=== PATIENT | male | born 1955 | race Caucasian/White ===

== ENCOUNTER 2016-12-11 11:19 | Emergency (ER) | payer MEDICAID ==
[2016-12-11] MEDS ORDERED: Ketorolac 10 MG Tab PO ONE (11:20)
[2016-12-11 11:40] VITALS: BP 126/60
--- NOTE | 2016-12-11 12:03 | EDM.PDOC ---
ED HPI GENERAL MEDICAL PROBLEM - General Chief Complaint: Upper Extremity Injury/Pain Stated Complaint: "I fell and hurt my wrist." Time Seen by Provider: 12/11/16 11:55 Source of Information: Reports: Patient History Limitations: Reports: No Limitations - History of Present Illness INITIAL COMMENTS - FREE TEXT/NARRATIVE: Fell this am tried to catch myself and injured my right wrist area. Pain is worse with movement in the distal wrist region. Relieved by rest, currently on Mobic 15 mg daily. Ice and elevated. Onset: Today Onset Date: 12/11/16 Onset Time: 10:00 Duration: Improving Location: Reports: Face, Upper Extremity, Right Quality: Reports: Throbbing Severity: Mild Improves with: Reports: Rest Worsens with: Reports: Movement Context: Reports: Trauma Associated Symptoms: Reports: Other (Facial abrasion-nasal abrasion) Right Wrist Pain Score (Numeric/FACES): 8 - Related Data Allergies Allergy/AdvReac Type Severity Reaction Status Date / Time Penicillins Allergy Cannot Verified 12/11/16 11:41 Remember Home Meds: Home Meds Albuterol Sulfate [Proair Respiclick] 2 puff INH Q4H PRN 09/16/14 [History] Albuterol [Proventil Neb Soln] 1 vial NEB Q6H PRN 09/16/14 [History] Aspirin [Ecotrin] 81 mg PO DAILY 09/16/14 [History] Divalproex Sodium 1,500 mg PO QPM 09/16/14 [History] Divalproex Sodium [Depakote] 500 mg PO QAM 09/16/14 [History] Docusate Sodium [Doc-Q-Lace] 100 mg PO DAILY 09/16/14 [History] Fluticasone/Salmeterol [Advair 500-50] 1 puff INH BID 09/16/14 [History] Hydrocodone/Acetaminophen [Hydrocodon-Acetaminophen 5-325] 0.5 - 1 tab PO Q12H 09/16/14 [History] Lisinopril 20 mg PO DAILY 09/16/14 [History] Meloxicam 15 mg PO BEDTIME PRN 09/16/14 [History] Mirtazapine 15 - 30 mg PO BEDTIME PRN 09/16/14 [History] Montelukast Sodium [Singulair] 10 mg PO DAILY 09/16/14 [History] Phenytoin 300 mg PO QAM 09/16/14 [History] Phenytoin 400 mg PO BEDTIME 09/16/14 [History] Simvastatin [Zocor] 40 mg PO BEDTIME 09/16/14 [History] Tiotropium [Spiriva HandiHaler] 18 mcg INH DAILY 09/16/14 [History] amLODIPine [Norvasc] 5 mg PO DAILY 09/16/14 [History] diphenhydrAMINE [Benadryl] 100 mg PO BEDTIME 09/16/14 [History] metFORMIN HCl [Metformin HCl] 1,000 mg PO BID 09/16/14 [History] risperiDONE [Risperdal] 4 mg PO BEDTIME 09/16/14 [History] Azithromycin 250 mg PO DAILY #6 tablet 09/18/14 [Rx] Furosemide [Lasix] 60 mg PO DAILY #0 09/18/14 [Rx] Past Medical History Cardiovascular History: Reports: High Cholesterol, Hypertension, SOB on Exertion Respiratory History: Reports: COPD Other Respiratory History: home oxygen Other Genitourinary History: urinary frequency Musculoskeletal History: Reports: Fracture, Other (See Below) Other Musculoskeletal History: chronic foot pain R Neurological History: Reports: Parkinson's, Seizure Endocrine/Metabolic History: Reports: Diabetes, Type I, Obesity/BMI 30+ Social & Family History - Tobacco Use Smoking Status *Q: Never Smoker Years of Tobacco use: 6 Used Tobacco, but Quit: Yes Month Tobacco Last Used: 32 yrs ago Second Hand Smoke Exposure: No - Recreational Drug Use Recreational Drug Use: No - Living Situation & Occupation Living situation: Reports: Single Occupation: Disabled Review of Systems - Review of Systems Review Of Systems: See Below Constitutional: Reports: No Symptoms Eyes: Reports: No Symptoms Ears: Reports: No Symptoms Nose: Reports: Other (mild abrasion across nasal bridge) Mouth/Throat: Reports: No Symptoms Respiratory: Reports: No Symptoms Cardiovascular: Reports: No Symptoms GI/Abdominal: Reports: No Symptoms Genitourinary: Reports: No Symptoms Musculoskeletal: Reports: Arm Pain (Right wrist region) Skin: Reports: Other (Abrasion on nasal region) Neurological: Reports: Pre-Existing Deficit (Parkinsons with tremor noted- Tripped with new shoes) Psychiatric: Reports: No Symptoms ED EXAM, GENERAL - Physical Exam Exam: See Below Exam Limited By: No Limitations General Appearance: Alert, WD/WN, Mild Distress Eye Exam: Bilateral Eye: EOMI, PERRL Ears: Normal External Exam Ear Exam: Bilateral Ear: Auricle Normal, Canal Normal, TM normal Nose: Nasal Tenderness (Mild abrasion). No: Normal Mucosa, No Blood Throat/Mouth: Normal Inspection, Normal Lips, Normal Teeth, Normal Gums, Normal Oropharynx, Normal Voice, No Airway Compromise Head: Atraumatic, Normocephalic. No: Facial Swelling, Facial Tenderness Neck: Normal Inspection, Supple, Non-Tender, Full Range of Motion Respiratory/Chest: No Respiratory Distress, Lungs Clear, Normal Breath Sounds, No Accessory Muscle Use, Chest Non-Tender Cardiovascular: Normal Peripheral Pulses, Regular Rate, Rhythm Peripheral Pulses: 3+: Radial (L), Radial (R) GI/Abdominal: Soft, Non-Tender (Male) Exam: Deferred Rectal (Males) Exam: Deferred Back Exam: Normal Inspection. No: Muscle Spasm, Paraspinal Tenderness Extremities: Normal Inspection, Normal Capillary Refill, Arm Pain, Limited Range of Motion. No: Slow Capillary Refill, Joint Swelling Neurological: Alert, Oriented, CN II-XII Intact, Normal Cognition, Normal Gait, Normal Reflexes, No Motor/Sensory Deficits Psychiatric: Normal Affect, Normal Mood Skin Exam: Warm, Dry, Intact, Ecchymosis Lymphatic: No Adenopathy Course - Vital Signs Last Recorded V/S: Last Vital Signs Temp 36.8 C 12/11/16 11:37 Pulse 81 12/11/16 11:37 Resp 20 12/11/16 11:37 BP 126/60 12/11/16 11:37 Pulse Ox 95 12/11/16 11:37 - Orders/Labs/Meds Orders: Active Orders 24 hr Category Date Time Status Wrist Comp Min 3V Rt [CR] Stat Exams 12/11/16 11:23 Taken Departure - Departure Time of Disposition: 12:11 Disposition: Home, Self-Care 01 Condition: Good Clinical Impression: Wrist pain, acute - Discharge Information Instructions: Pain Medicine Instructions, [id number], Cast or Splint Care, [id number] Additional Instructions: Xray-pending Radiological review. No acute dislocation or fracture noted. Thumb spica splint application. Rest Ice Splint Elevate and medications as indicated Prevent further injury and call for appointment with Dr. Ramsey Monday for reevaluation. - Problem List & Annotations (1) Wrist pain, acute SNOMED Code(s): 15475620, 112158976 Code(s): M25.539 - PAIN IN UNSPECIFIED WRIST Status: Acute - Problem List Review Problem List Initiated/Reviewed/Updated: Yes - My Orders Last 24 Hours: My Active Orders 12/11/16 11:23 Wrist Comp Min 3V Rt [CR] Stat - Assessment/Plan Last 24 Hours: My Active Orders 12/11/16 11:23 Wrist Comp Min 3V Rt [CR] Stat Assessment:: Right Wrist Strain S/P fall Parkinson's COPD Plan: Xray-pending Radiological review. No acute dislocation or fracture noted. Thumb spica splint application. Rest Ice Splint Elevate and medications as indicated Prevent further injury and call for appointment with Dr. Ramsey Monday for reevaluation.
[2016-12-11] MEDS ORDERED: Take Home: Ketorolac 10 MG Tab, 4 Tab Pack PO ONE (12:04)
== END 2016-12-11 12:25 | disposition home or self-care (01) ==
LOC: CC.ED 11:19
DX: S66.911A Strain of unspecified muscle, fascia and tendon at wrist and hand level, right hand, initial encounter (principal); E10.9 Type 1 diabetes mellitus without complications; G20 Parkinson's disease; E66.9 Obesity, unspecified; E78.00 Pure hypercholesterolemia, unspecified; I10 Essential (primary) hypertension; J44.9 Chronic obstructive pulmonary disease, unspecified; Z88.0 Allergy status to penicillin; Z79.899 Other long term (current) drug therapy; Z79.82 Long term (current) use of aspirin; Z79.84 Long term (current) use of oral hypoglycemic drugs; W18.30XA Fall on same level, unspecified, initial encounter
CPT/HCPCS: 73110; 99283; A9270

== ENCOUNTER 2020-05-29 10:10 | Emergency (ER) | payer MEDICAID ==
[2020-05-29 10:30] VITALS: BP 148/69; PULSE 95
--- NOTE | 2020-05-29 11:00 | EDM.PDOC ---
ED HPI GENERAL MEDICAL PROBLEM - General Chief Complaint: General Stated Complaint: abd pain Time Seen by Provider: 05/29/20 10:40 Source of Information: Reports: Patient History Limitations: Reports: No Limitations - History of Present Illness INITIAL COMMENTS - FREE TEXT/NARRATIVE: GLADYS is a 65 yo male who presents to the ED with c/o mid abdominal pain. He reports pain started about 430 this morning and has been constant and intensified since then. He describes the pain as a sharp ache. Pain is worse with movement. He reports he tried some Pepto Bismol this morning and that made him vomit. He reports he is nauseated and chilled. He denies any fever, dizziness, headache, chest pain, increased SOB from baseline. Does also report he has only been "dribbling" urine. Reports it is painful when he dribbles urine. Does have COPD and is on chronic home O2 at 2-3 L. O2 low upon presentation but he now currently has O2 sats 95% on 3 L. Onset: Today, Sudden Onset Date: 05/29/20 Onset Time: 04:30 Duration: Constant Location: Reports: Abdomen Quality: Reports: Ache Severity: Severe Improves with: Reports: None Worsens with: Reports: Movement Associated Symptoms: Reports: Fever/Chills (chills, no fever), Loss of Appetite, Nausea/Vomiting, Shortness of Breath (baselne). Denies: Confusion, Chest Pain, Cough, cough w sputum, Diaphoresis, Headaches, Malaise, Rash, Seizure, Syncope, Weakness Upper Mid-Anterior Epigastric Pain Score (Numeric/FACES): 10 - Related Data Allergies Allergy/AdvReac Type Severity Reaction Status Date / Time Penicillins Allergy Cannot Verified 05/29/20 13:00 Remember Home Meds: Home Meds Albuterol Sulfate [Proair Respiclick] 2 puff INH Q4H PRN 09/16/14 [History] Albuterol [Proventil Neb Soln] 1 vial NEB Q6H PRN 09/16/14 [History] Aspirin [Ecotrin EC] 81 mg PO DAILY 09/16/14 [History] Divalproex Sodium 1,500 mg PO QPM 09/16/14 [History] Divalproex Sodium [Depakote] 500 mg PO QAM 09/16/14 [History] Fluticasone/Salmeterol [Advair 500-50] 1 puff INH BID 09/16/14 [History] Lisinopril 20 mg PO DAILY 09/16/14 [History] Meloxicam 15 mg PO BEDTIME PRN 09/16/14 [History] Mirtazapine 15 - 30 mg PO BEDTIME PRN 09/16/14 [History] Montelukast Sodium [Singulair] 10 mg PO DAILY 09/16/14 [History] Phenytoin 300 mg PO QAM 09/16/14 [History] Phenytoin 400 mg PO BEDTIME 09/16/14 [History] Simvastatin [Zocor] 40 mg PO BEDTIME 09/16/14 [History] Tiotropium [Spiriva HandiHaler] 18 mcg INH DAILY 09/16/14 [History] amLODIPine [Norvasc] 5 mg PO DAILY 09/16/14 [History] diphenhydrAMINE [Benadryl] 100 mg PO BEDTIME 09/16/14 [History] metFORMIN HCl [Metformin HCl] 1,000 mg PO BID 09/16/14 [History] risperiDONE [Risperdal] 4 mg PO BEDTIME 09/16/14 [History] Furosemide [Lasix] 60 mg PO DAILY #0 09/18/14 [Rx] Past Medical History Cardiovascular History: Reports: High Cholesterol, Hypertension, SOB on Exertion Respiratory History: Reports: COPD Other Respiratory History: home oxygen Genitourinary History: Reports: Other (See Below) Other Genitourinary History: urinary frequency Musculoskeletal History: Reports: Fracture, Other (See Below) Other Musculoskeletal History: chronic foot pain R Neurological History: Reports: Parkinson's, Seizure Endocrine/Metabolic History: Reports: Diabetes, Type II, Obesity/BMI 30+ Social & Family History - Family History Family Medical History: No Pertinent Family History - Alcohol Use Alcohol Use History: No - Recreational Drug Use Recreational Drug Use: No - Living Situation & Occupation Living situation: Reports: Single Occupation: Disabled ED ROS GENERAL - Review of Systems Review Of Systems: See Below Constitutional: Reports: Chills, Weakness, Decreased Appetite. Denies: Fever HEENT: Reports: No Symptoms Respiratory: Reports: Shortness of Breath. Denies: Pleuritic Chest Pain, Cough, Sputum Cardiovascular: Reports: Dyspnea on Exertion, Edema. Denies: Chest Pain Endocrine: Reports: No Symptoms GI/Abdominal: Reports: Abdominal Pain, Decreased Appetite, Nausea, Vomiting. Denies: Black Stool, Bloody Stool, Constipation, Diarrhea, Hematemesis : Reports: Dysuria, Other (dribbling) Musculoskeletal: Reports: No Symptoms Skin: Reports: No Symptoms Neurological: Reports: Weakness. Denies: Confusion, Dizziness, Numbness, Tingling Psychiatric: Reports: No Symptoms Hematologic/Lymphatic: Reports: No Symptoms Immunologic: Reports: No Symptoms ED EXAM, GENERAL - Physical Exam Exam: See Below Exam Limited By: No Limitations General Appearance: Alert, WD/WN, Mild Distress Nose: Normal Inspection, Normal Mucosa, No Blood Throat/Mouth: Normal Inspection, Normal Lips, Normal Teeth, Normal Gums, Normal Oropharynx, Normal Voice, No Airway Compromise Neck: Normal Inspection, Supple, Non-Tender, Full Range of Motion Respiratory/Chest: No Respiratory Distress, No Accessory Muscle Use, Decreased Breath Sounds, Wheezing Cardiovascular: Regular Rate, Rhythm GI/Abdominal: Normal Bowel Sounds, Soft, Guarding, Tender Back Exam: Normal Inspection, Full Range of Motion. No: CVA Tenderness (L), CVA Tenderness (R) Neurological: Alert, Oriented, CN II-XII Intact, Normal Cognition, Normal Gait, Normal Reflexes, No Motor/Sensory Deficits Psychiatric: Normal Affect, Normal Mood Skin Exam: Dry Course - Vital Signs Last Recorded V/S: Last Vital Signs Temp 95.8 F L 05/29/20 10:13 Pulse 95 05/29/20 10:13 Resp 21 H 05/29/20 10:13 BP 148/69 H 05/29/20 10:13 Pulse Ox - Orders/Labs/Meds Orders: Active Orders 24 hr Category Date Time Status Abdomen Ltd [US] Stat Exams 05/29/20 11:01 Taken Chest 2V [CR] Stat Exams 05/29/20 10:23 Taken UA RFX EDUARDO AND CULT IF INDIC [URIN] Stat Lab 05/29/20 10:53 Ordered Labs: Laboratory Tests 05/29/20 05/29/20 05/29/20 Range/Units 10:30 10:36 10:36 WBC 11.6 H (5.0-10.0) 10^3/uL RBC 3.77 L (4.50-6.00) 10^6/uL Hgb 11.5 L (14.0-18.0) g/dL Hct 35.8 L (40.0-54.0) % MCV 95.0 H (82.0-94.0) fL MCH 30.5 (27.0-32.0) pg MCHC 32.1 L (33.0-38.0) g/dL RDW Coeff of Zhang 14.1 (11.0-15.0) % Plt Count 390 (150-400) 10^3/uL Add Manual Diff Yes Neutrophils % (Manual) 81 (35-85) % Lymphocytes % (Manual) 7 L (21-55) % Monocytes % (Manual) 11 (2-12) % Eosinophils % (Manual) 1 (0-5) % PT 10.3 (9.7-12.3) SEC INR 0.94 (0.92-1.18) APTT 25.2 (23.2-32.3) SEC D-Dimer, Quantitative 5.14 H (0.00-0.50) Sodium (136-145) mEq/L Potassium (3.5-5.0) mEq/L Chloride (98-106) mEq/L Carbon Dioxide (21-32) mmol/L BUN (7-18) mg/dL Creatinine (0.7-1.3) mg/dL Est Cr Clr Drug Dosing mL/min Estimated GFR (MDRD) (>=60) mL/min Glucose (75-99) mg/dL Calcium (8.4-10.1) mg/dL Total Bilirubin (0.0-1.0) mg/dL AST (15-37) U/L ALT (12-78) U/L Alkaline Phosphatase (46-116) U/L Lactate Dehydrogenase (100-190) U/L Creatine Kinase (35-232) U/L Troponin I (0.00-0.06) ng/mL C-Reactive Protein (0.2-0.8) mg/dL NT-Pro-B Natriuret Pep (0-1000) pg/mL Total Protein (6.4-8.2) g/dL Albumin (3.4-5.0) g/dL Amylase 5173 H (25-115) U/L Lipase > 51267 H (73-393) U/L 05/29/20 Range/Units 10:36 WBC (5.0-10.0) 10^3/uL RBC (4.50-6.00) 10^6/uL Hgb (14.0-18.0) g/dL Hct (40.0-54.0) % MCV (82.0-94.0) fL MCH (27.0-32.0) pg MCHC (33.0-38.0) g/dL RDW Coeff of Zhang (11.0-15.0) % Plt Count (150-400) 10^3/uL Add Manual Diff Neutrophils % (Manual) (35-85) % Lymphocytes % (Manual) (21-55) % Monocytes % (Manual) (2-12) % Eosinophils % (Manual) (0-5) % PT (9.7-12.3) SEC INR (0.92-1.18) APTT (23.2-32.3) SEC D-Dimer, Quantitative (0.00-0.50) Sodium 143 (136-145) mEq/L Potassium 4.7 (3.5-5.0) mEq/L Chloride 102 (98-106) mEq/L Carbon Dioxide 29 (21-32) mmol/L BUN 28 H (7-18) mg/dL Creatinine 2.0 H (0.7-1.3) mg/dL Est Cr Clr Drug Dosing 31.24 mL/min Estimated GFR (MDRD) 34 L (>=60) mL/min Glucose 255 H D (75-99) mg/dL Calcium 9.1 (8.4-10.1) mg/dL Total Bilirubin 1.2 H (0.0-1.0) mg/dL AST 603 H* (15-37) U/L ALT 175 H (12-78) U/L Alkaline Phosphatase 320 H (46-116) U/L Lactate Dehydrogenase 450 H (100-190) U/L Creatine Kinase 67 (35-232) U/L Troponin I 0.023 (0.00-0.06) ng/mL C-Reactive Protein 3.6 H (0.2-0.8) mg/dL NT-Pro-B Natriuret Pep 590 (0-1000) pg/mL Total Protein 7.8 (6.4-8.2) g/dL Albumin 3.4 (3.4-5.0) g/dL Amylase (25-115) U/L Lipase (73-393) U/L - Re-Assessments/Exams Free Text/Narrative Re-Assessment/Exam: 05/29/20 12:10 Consulted with [facility] hospitalist Dr. Salcido, who accepts the patient for transfer. Discussed risks and benefits of transfer with patient. Risks of transfer include worsening of condition, pain, and MVA enroute. Benefits of transfer include higher level of care with GI consultation. Risks of nontransfer include worsening of condition and . Benefits of nontransfer include convenience. Patient verbalized understanding and was agreeable to transfer. Departure - Departure Time of Disposition: 12:54 Disposition: DC/Tfer to [facility] 02 Condition: Fair Clinical Impression: Acute pancreatitis Qualifiers: Pancreatitis type: unspecified pancreatitis type Acute pancreatitis complication: unspecified Qualified Code(s): K85.90 - Acute pancreatitis without necrosis or infection, unspecified - Discharge Information *PRESCRIPTION DRUG MONITORING PROGRAM REVIEWED*: Not Applicable *COPY OF PRESCRIPTION DRUG MONITORING REPORT IN PATIENT GERMAN: Not Applicable Instructions: Acute Pancreatitis, [id number] Referrals: Derrek Ramsey MD [Primary Care Provider] - Forms: ED Department Discharge Sepsis Event Note (ED) - Evaluation Sepsis Screening Result: No Definite Risk - Focused Exam Vital Signs: Vital Signs Temp Pulse Resp BP 05/29/20 10:13 95.8 F L 95 21 H 148/69 H - Problem List & Annotations (1) Acute pancreatitis SNOMED Code(s): 692961078 Code(s): K85.90 - ACUTE PANCREATITIS WITHOUT NECROSIS OR INFECTION, UNSP Status: Acute Qualifiers: Pancreatitis type: unspecified pancreatitis type Acute pancreatitis complication: unspecified Qualified Code(s): K85.90 - Acute pancreatitis without necrosis or infection, unspecified (2) COPD (chronic obstructive pulmonary disease) SNOMED Code(s): 73663560 Code(s): J44.9 - CHRONIC OBSTRUCTIVE PULMONARY DISEASE, UNSPECIFIED Status: Acute Qualifiers: COPD type: unspecified COPD Qualified Code(s): J44.9 - Chronic obstructive pulmonary disease, unspecified - Problem List Review Problem List Initiated/Reviewed/Updated: Yes - My Orders Last 24 Hours: My Active Orders 05/29/20 10:23 Chest 2V [CR] Stat 05/29/20 10:53 UA RFX EDUARDO AND CULT IF INDIC [URIN] Stat 05/29/20 11:01 Abdomen Ltd [US] Stat - Assessment/Plan Last 24 Hours: My Active Orders 05/29/20 10:23 Chest 2V [CR] Stat 05/29/20 10:53 UA RFX EDUARDO AND CULT IF INDIC [URIN] Stat 05/29/20 11:01 Abdomen Ltd [US] Stat Assessment:: Acute Pancreatitis COPD Plan: 65 yo male presents to the Ed with c/o onset of abdominal pain at 0430 this morning. He reports nausea, vomiting and chills. Lab work significant for WBC 11.6, D-dimer 5.14, creatinine 2.0, CRP 3.6, bili 1.2, AST 603, ALT 175, Alk Phos 320, lipase > 15,000 and amylase 5173. Patient was unable to give urine sample. He refused straight cath. While in ED patient received 50 mcg fentanyl, which did improve patient's pain. Also received 1 L LR fluid bolus, 4 mg Zofran and 80 mg Protonix. 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 Patient does apparently have hx of gallstones from previous US but they are not well visualized on US today. There is some prominence to the extrahepatic biliary tree but no obvious obstructing mass or stone. Consulted with [facility] hospitalist Dr. Salcido re: transfer. He accepts the patient for transfer. Patient will be transported via [facility] to [facility] for ongoing workup/treatment. ALS crew available to administer pain medications and IVF enroute. Patient discharged from facility in stable condition.
[2020-05-29 11:02] LABS: PTT,PARTIAL THROMBOPLSTIN TIME 25.2 SEC (23.2-32.3)
[2020-05-29] MEDS: fentaNYL 50 MCG/ML SDV IVPUSH ONE (11:17)
[2020-05-29] MEDS: Pantoprazole 40 MG Vial ONE (12:04)
[2020-05-29] MEDS: Pantoprazole 40 MG Vial IVPUSH ONE ×2 (12:04→14:22)
[2020-05-29] MEDS: Lactated Ringers 1,000 ML IV ONE (12:32)
[2020-05-29] MEDS: Ondansetron 4 MG/2 ML SDV IVPUSH PRN (12:44)
== END 2020-05-29 13:45 ==
LOC: CC.ED 10:10
DX: K85.90 Acute pancreatitis without necrosis or infection, unspecified (principal); E78.00 Pure hypercholesterolemia, unspecified; I10 Essential (primary) hypertension; J44.9 Chronic obstructive pulmonary disease, unspecified; E11.9 Type 2 diabetes mellitus without complications; E66.9 Obesity, unspecified; Z68.42 Body mass index [BMI] 45.0-49.9, adult; Z88.0 Allergy status to penicillin; Z79.82 Long term (current) use of aspirin; Z79.899 Other long term (current) drug therapy
CPT/HCPCS: 36415; 71046; 76705; 80053; 82150; 82550; 83615; 83690; 83880; 84484; 85025; 85379; 85610; 85730; 86140; 93005; 96374; 96375; 99285-25; C9113; J2405; J3010; J7120